=== PATIENT | female | born 1940 | race African-American/Black ===

== ENCOUNTER 2018-01-30 17:33 | Inpatient (IN) | payer MEDICARE, MEDICAID ==
[~2018-01-30] VITALS: Ht 167.6 cm; Wt 53.1 kg
[~2018-01-30 17:33] MED LIST: AMLO10TA4 PO; ATOR20TA PO; CLOP75TA16 PO; LOSA-20 PO
[2018-01-30 18:49] LABS: EOSINOPHILS % 4.7 % (0.0-5.0); HEMATOCRIT. 32.8 % (36.0-48.0); HEMOGLOBIN. 10.7 g/dL (12.0-16.0); MEAN CORPUSCULAR HEMOGLOBIN 26.2 pg (28.0-32.0); MEAN CORPUSCULAR VOLUME 79.9 fL (81.0-99.0); MEAN PLATELET VOLUME 7.8 fl (7.4-10.4); MONOCYTES % 9.8 % (2.0-8.0); NEUTROPHILS % 61.5 % (40.0-76.0); PLATELET 558 x1000/uL (130-400); RED CELL DISTRIBUTION WIDTH 16.1 % (11.6-14.6)
[2018-01-30 18:55] LABS: CHLORIDE 100 mEq/L (98-107)
[2018-01-30 19:04] LABS: INR 1.1
[2018-01-31 00:20] VITALS: BP 124/52
[2018-01-31] MEDS ORDERED: ASPI-986 PO (01:11)
[2018-01-31] MEDS ORDERED: ACETAMINOPHEN 325MG TABLET PO PRN (01:15)
[2018-01-31] MEDS ORDERED: ZOLPIDEM TARTRATE 5MG TABLET PO PRN (01:15)
[2018-01-31 04:00] VITALS: BP 96/54
[2018-01-31 08:07] LABS: BASOPHILS % 1.4 % (0.0-2.0); EOSINOPHILS % 6.4 % (0.0-5.0); HEMATOCRIT. 31.3 % (36.0-48.0); HEMOGLOBIN. 10.5 g/dL (12.0-16.0); LYMPHOCYTES % 25.7 % (20.0-50.0); MEAN CORPUSCULAR HEMOGLOBIN 26.5 pg (28.0-32.0); MEAN PLATELET VOLUME 8.4 fl (7.4-10.4); MONOCYTES % 11.1 % (2.0-8.0); NEUTROPHILS % 55.4 % (40.0-76.0); PLATELET 523 x1000/uL (130-400); RED BLOOD CELL COUNT 3.96 mill/uL (4.2-5.4); RED CELL DISTRIBUTION WIDTH 16.3 % (11.6-14.6)
[2018-01-31] MEDS ORDERED: HYDROCHLOROTHIAZIDE 25MG TABLET PO SCH (09:00)
[2018-01-31] MEDS ORDERED: MEDICATION NOT ON FORMULARY EA (Losartan/Hydrochlorothiazide (Losartan-Hctz 100-25 Mg Ta PO SCH (09:00)
[2018-01-31] MEDS ORDERED: LOSARTAN POTASSIUM 100 MG TABLET PO SCH (09:00)
[2018-01-31 09:38] VITALS: BP 121/53
[2018-01-31] MEDS: CLOPIDOGREL 75MG TABLET PO SCH (09:40)
[2018-01-31] MEDS: ASPIRIN 325MG TABLET PO SCH (09:40)
[2018-01-31] MEDS: AMLODIPINE 10MG TABLET PO SCH (09:40)
[2018-01-31 12:00] VITALS: BP 123/54
[2018-01-31 16:00] VITALS: BP 128/61
[2018-01-31 20:00] VITALS: BP 121/46
[2018-01-31] MEDS ORDERED: ATORVASTATIN CALCIUM 20MG TABLET PO SCH (21:00)
[2018-02-01] VITALS: BP 135/57
[2018-02-01 05:25] VITALS: BP 199/45
[2018-02-01] MEDS ORDERED: CLONIDINE 0.2MG TABLET PO PRN (05:30)
[2018-02-01 05:45] LABS: EOSINOPHILS % 6.7 % (0.0-5.0); HEMATOCRIT. 34.6 % (36.0-48.0); HEMOGLOBIN. 11.3 g/dL (12.0-16.0); LYMPHOCYTES % 31.7 % (20.0-50.0); MEAN CORPUSCULAR HEMOGLOBIN 26.1 pg (28.0-32.0); MONOCYTES % 9.5 % (2.0-8.0); NEUTROPHILS % 50.1 % (40.0-76.0); PLATELET 527 x1000/uL (130-400); RED BLOOD CELL COUNT 4.33 mill/uL (4.2-5.4); RED CELL DISTRIBUTION WIDTH 16.1 % (11.6-14.6)
[2018-02-01 06:29] VITALS: BP 124/50
[2018-02-01 08:00] VITALS: BP 94/51
[2018-02-01] MEDS: CLOPIDOGREL 75MG TABLET PO SCH (08:44)
[2018-02-01] MEDS: ASPIRIN 325MG TABLET PO SCH (08:44)
[2018-02-01] MEDS ORDERED: METOPROLOL TARTRATE 50MG TABLET PO SCH (09:00)
[2018-02-01] MEDS: AMLODIPINE 10MG TABLET PO SCH (09:00)
[2018-02-01] MEDS ORDERED: SODIUM CHLORIDE 0.45% 1,000 ML IV SCH (09:15)
[2018-02-01 11:13] LABS: CREATINE KINASE 64 IU/L (26-192)
[2018-02-01 12:00] VITALS: BP 152/65
[2018-02-01 13:06] VITALS: BP 117/51
[2018-02-03 09:11] LABS: COMPLEMENT C3 133 mg/dL (82-167)
[2018-02-03 19:06] LABS: ANTI-NUCLEAR ANTIBODIES DIRECT Negative (Negative)
== END 2018-02-01 15:00 | disposition home or self-care (01) | DRG 683 ==
LOC: ER 17:57 → 7WST 21:08 → EDBEDREQ 21:11 → EDBEDREQTM 21:11 → ENRESERV 22:48
PROVIDERS: ADMIT Internal Medicine; ATTEND Internal Medicine
DX: N17.9 Acute kidney failure, unspecified (principal); E44.0 Moderate protein-calorie malnutrition; Z86.74 Personal history of sudden cardiac arrest; E87.1 Hypo-osmolality and hyponatremia; Z68.1 Body mass index [BMI] 19.9 or less, adult; D64.9 Anemia, unspecified; E78.5 Hyperlipidemia, unspecified; I25.10 Atherosclerotic heart disease of native coronary artery without angina pectoris; N18.9 Chronic kidney disease, unspecified; I73.9 Peripheral vascular disease, unspecified; K29.70 Gastritis, unspecified, without bleeding; I12.9 Hypertensive chronic kidney disease with stage 1 through stage 4 chronic kidney disease, or unspecified chronic kidney disease; R07.9 Chest pain, unspecified; Z79.899 Other long term (current) drug therapy; Z79.02 Long term (current) use of antithrombotics/antiplatelets; Z82.49 Family history of ischemic heart disease and other diseases of the circulatory system; Z79.82 Long term (current) use of aspirin; Z95.1 Presence of aortocoronary bypass graft; Z95.5 Presence of coronary angioplasty implant and graft
CPT/HCPCS: 36415; 71045; 76770; 80048; 80053; 82550; 83690; 83735; 83880; 84484; 85025; 85610; 86038; 86160; 93005

== ENCOUNTER 2018-10-16 11:00 | Inpatient (IN) | payer MEDICARE, MEDICAID ==
[~2018-10-16] VITALS: Ht 167.6 cm; Wt 44.5 kg
[~2018-10-16 11:00] MED LIST changes: +ASPI-986 PO
[2018-10-16] MEDS ORDERED: INSU100I28 SQ (11:15)
[2018-10-16] MEDS ORDERED: DIGO125T82 PO (11:15)
[2018-10-16] MEDS ORDERED: CARV3.1242 PO (11:15)
[2018-10-16] MEDS ORDERED: SITA1TAB6 PO (11:15)
[2018-10-16] MEDS ORDERED: FENTANYL CITRATE/PF 50MCG/ML 2ML VIAL ONE (12:57)
[2018-10-16] MEDS ORDERED: LIDOCAINE HCL 1% 20ML VIAL (Pyxis) INJ ONE (12:57)
[2018-10-16] MEDS ORDERED: MIDAZOLAM HCL 2 MG/2 ML VIAL ONE (12:57)
[2018-10-16] MEDS ORDERED: IODIXANOL 320MG/ML 200ML BOTTLE ONE (13:15)
[2018-10-16] MEDS ORDERED: IODIXANOL 320MG/ML 100 ML BOTTLE IV ONE (13:18)
[2018-10-16] MEDS ORDERED: HEPARIN SODIUM 1,000 UNIT/1ML VIAL IV ONE ×2 (13:48→15:28)
[2018-10-16] MEDS ORDERED: ONDANSETRON HCL 4MG/2ML INJ IV PRN (14:00)
[2018-10-16] MEDS ORDERED: ACETAMINOPHEN 325MG TABLET PO PRN (14:00)
[2018-10-16] MEDS ORDERED: ATROPINE SULFATE 1MG/10ML SYR IV PRN (14:00)
[2018-10-16] MEDS ORDERED: NITROGLYCERIN 50MCG/ML 10ML VIAL (CATH LAB) IV ONE (14:30)
[2018-10-16] MEDS ORDERED: NICARDIPINE 100MCG/ML 10ML VIAL (CATH LAB) IV ONE (14:30)
[2018-10-16] MEDS ORDERED: LORAZEPAM 0.5MG TABLET PO PRN (15:15)
[2018-10-16] MEDS: MORPHINE SULFATE 10 MG/ML CPJ IV PRN ×2 (15:41→21:37)
[2018-10-16] MEDS ORDERED: SODIUM CHLORIDE 0.45% 600 ML IV ONE (21:23)
[2018-10-16] MEDS: ATORVASTATIN CALCIUM 40MG TABLET PO SCH (21:35)
[2018-10-16 22:00] VITALS: BP 127/64
[2018-10-16 22:28] VITALS: BP 148/78
[2018-10-16] MEDS: NITROGLYCERIN OINT 1GM/INCH UDPKT TD SCH (23:12)
[2018-10-17] VITALS (12 sets, daily range): BP systolic 113–148; BP diastolic 58–82
[2018-10-17] MEDS: MORPHINE SULFATE 10 MG/ML CPJ IV PRN ×2 (03:45→12:11)
[2018-10-17] MEDS: NITROGLYCERIN OINT 1GM/INCH UDPKT TD SCH ×5 (06:12→23:33)
[2018-10-17 07:15] LABS: HEMATOCRIT. 31.2 % (36.0-48.0); HEMOGLOBIN. 10.4 g/dL (12.0-16.0); LYMPHOCYTES % 29.9 % (20.0-50.0); MEAN CORPUSCULAR HEMOGLOBIN 26.3 pg (28.0-32.0); MEAN CORPUSCULAR VOLUME 79.1 fL (81.0-99.0); MEAN PLATELET VOLUME 7.4 fl (7.4-10.4); MONOCYTES % 9.4 % (2.0-8.0); NEUTROPHILS % 58.7 % (40.0-76.0); PLATELET 361 x1000/uL (130-400); RED BLOOD CELL COUNT 3.95 mill/uL (4.2-5.4); RED CELL DISTRIBUTION WIDTH 16.1 % (11.6-14.6)
[2018-10-17] MEDS: AMLODIPINE 5MG TABLET PO SCH (09:15)
[2018-10-17] MEDS: ASPIRIN 81MG TABLET PO SCH (09:15)
[2018-10-17] MEDS ORDERED: LOSA1TAB37 PO (09:25)
[2018-10-17] MEDS ORDERED: ASPI-1158 PO (09:25)
[2018-10-17] MEDS ORDERED: AMLO10TA4 PO (09:25)
[2018-10-17] MEDS ORDERED: CLOP75TA16 PO (09:25)
[2018-10-17] MEDS ORDERED: CILO100T PO (09:25)
[2018-10-17] MEDS ORDERED: ATOR20TA65 PO (09:25)
[2018-10-17] MEDS: ACETYLCYSTEINE 200MG/ML 20% VIAL 4ML PO SCH ×2 (15:34→20:28)
[2018-10-17] MEDS: ATORVASTATIN CALCIUM 40MG TABLET PO SCH (20:28)
[2018-10-18] VITALS (12 sets, daily range): BP systolic 114–151; BP diastolic 58–87
[2018-10-18] MEDS: NITROGLYCERIN OINT 1GM/INCH UDPKT TD SCH ×4 (05:21→22:59)
[2018-10-18 07:17] LABS: BASOPHILS % 1.1 % (0.0-2.0); EOSINOPHILS % 2.3 % (0.0-5.0); HEMATOCRIT. 32.6 % (36.0-48.0); HEMOGLOBIN. 10.8 g/dL (12.0-16.0); LYMPHOCYTES % 30.6 % (20.0-50.0); MEAN CORPUSCULAR HEMOGLOBIN 26.3 pg (28.0-32.0); MEAN CORPUSCULAR VOLUME 79.2 fL (81.0-99.0); MEAN PLATELET VOLUME 7.6 fl (7.4-10.4); MONOCYTES % 10.3 % (2.0-8.0); NEUTROPHILS % 55.7 % (40.0-76.0); PLATELET 365 x1000/uL (130-400); RED BLOOD CELL COUNT 4.11 mill/uL (4.2-5.4)
[2018-10-18] MEDS ORDERED: ACETYLCYSTEINE 200MG/ML 20% VIAL 4ML PO SCH (09:00)
[2018-10-18] MEDS: ASPIRIN 81MG TABLET PO SCH (09:02)
[2018-10-18] MEDS: AMLODIPINE 5MG TABLET PO SCH (09:02)
[2018-10-18] MEDS: ACETYLCYSTEINE 200MG/ML 20% VIAL 4ML PO SCH ×2 (09:28→20:50)
[2018-10-18] MEDS ORDERED: LORAZEPAM 1MG TABLET PO PRN (14:45)
[2018-10-18] MEDS: SODIUM CHLORIDE 0.45% 1,000 ML IV SCH (17:26)
[2018-10-18] MEDS: ATORVASTATIN CALCIUM 40MG TABLET PO SCH (20:50)
[2018-10-19] VITALS (28 sets, daily range): BP systolic 113–190; BP diastolic 54–106
[2018-10-19] MEDS: MORPHINE SULFATE 10 MG/ML CPJ IV PRN ×2 (00:15→18:23)
[2018-10-19] MEDS: NITROGLYCERIN OINT 1GM/INCH UDPKT TD SCH ×4 (05:29→23:48)
[2018-10-19] MEDS: SODIUM CHLORIDE 0.45% 1,000 ML IV SCH ×2 (05:32→21:19)
[2018-10-19 06:20] LABS: EOSINOPHILS % 2.4 % (0.0-5.0); HEMATOCRIT. 32.2 % (36.0-48.0); HEMOGLOBIN. 10.7 g/dL (12.0-16.0); LYMPHOCYTES % 34.4 % (20.0-50.0); MEAN CORPUSCULAR HEMOGLOBIN 26.3 pg (28.0-32.0); MEAN PLATELET VOLUME 7.4 fl (7.4-10.4); MONOCYTES % 11.1 % (2.0-8.0); NEUTROPHILS % 51.1 % (40.0-76.0); PLATELET 348 x1000/uL (130-400); RED BLOOD CELL COUNT 4.07 mill/uL (4.2-5.4); RED CELL DISTRIBUTION WIDTH 15.8 % (11.6-14.6)
[2018-10-19] MEDS: ASPIRIN 81MG TABLET PO SCH (08:05)
[2018-10-19] MEDS: AMLODIPINE 5MG TABLET PO SCH (08:05)
[2018-10-19] MEDS: ACETYLCYSTEINE 200MG/ML 20% VIAL 4ML PO SCH (08:05)
[2018-10-19] MEDS ORDERED: MAGNESIUM 2 G PREMIX 50 ML IV SCH (09:30)
[2018-10-19] MEDS ORDERED: ASPIRIN/SOD BICARB/CITRIC ACID 324MG TAB EFF ONE (12:37)
[2018-10-19] MEDS ORDERED: IODIXANOL 320MG/ML 100 ML BOTTLE IV ONE (12:58)
[2018-10-19] MEDS ORDERED: MIDAZOLAM HCL 2 MG/2 ML VIAL ONE ×2 (12:58→14:12)
[2018-10-19] MEDS ORDERED: LIDOCAINE HCL 1% 20ML VIAL (Pyxis) INJ ONE ×2 (12:58→13:12)
[2018-10-19] MEDS ORDERED: FENTANYL CITRATE/PF 50MCG/ML 2ML VIAL ONE ×2 (12:59→14:54)
[2018-10-19] MEDS ORDERED: NITROGLYCERIN 50MCG/ML 10ML VIAL (CATH LAB) IV ONE (13:47)
[2018-10-19] MEDS ORDERED: NICARDIPINE 100MCG/ML 10ML VIAL (CATH LAB) IV ONE (13:47)
[2018-10-19] MEDS ORDERED: IOHEXOL-300 100 ML BOTTLE ONE (13:57)
[2018-10-19] MEDS ORDERED: HEPARIN SODIUM 1,000 UNIT/1ML VIAL IV ONE (13:58)
[2018-10-19] MEDS ORDERED: CLOPIDOGREL 75MG TABLET ONE (15:10)
[2018-10-19] MEDS ORDERED: ONDANSETRON HCL 4MG/2ML INJ IV PRN (15:15)
[2018-10-19] MEDS ORDERED: CLOPIDOGREL 75MG TABLET PO SCH (15:15)
[2018-10-19] MEDS ORDERED: ATROPINE SULFATE 1MG/10ML SYR IV PRN (15:15)
[2018-10-19] MEDS ORDERED: SODIUM CHLORIDE 0.45% 1,000 ML IV SCH (15:15)
[2018-10-19] MEDS ORDERED: DOPAMINE 400MG/250ML PREMIX 250 ML IV ONE (15:15)
[2018-10-19] MEDS: MORPHINE SULFATE 4 MG/ML CPJ (NOT FOR IM USE) IV PRN ×2 (15:58→23:48)
[2018-10-19 19:14] LABS: HEMOGLOBIN 11.4 g/dL (12.0-16.0)
[2018-10-19] MEDS: ATORVASTATIN CALCIUM 40MG TABLET PO SCH (21:19)
[2018-10-20] VITALS (46 sets, daily range): BP systolic 128–187; BP diastolic 61–115
[2018-10-20] MEDS: NITROGLYCERIN OINT 1GM/INCH UDPKT TD SCH ×4 (05:28→23:29)
[2018-10-20 05:36] LABS: CHLORIDE 102 mEq/L (98-107)
[2018-10-20 05:47] LABS: BASOPHILS % 0.6 % (0.0-2.0); EOSINOPHILS % 0.4 % (0.0-5.0); HEMATOCRIT. 34.4 % (36.0-48.0); LYMPHOCYTES % 9.2 % (20.0-50.0); MEAN CORPUSCULAR HEMOGLOBIN 25.6 pg (28.0-32.0); MEAN CORPUSCULAR VOLUME 80.3 fL (81.0-99.0); MEAN PLATELET VOLUME 7.4 fl (7.4-10.4); MONOCYTES % 7.2 % (2.0-8.0); NEUTROPHILS % 82.6 % (40.0-76.0); PLATELET 348 x1000/uL (130-400); RED BLOOD CELL COUNT 4.28 mill/uL (4.2-5.4); RED CELL DISTRIBUTION WIDTH 15.9 % (11.6-14.6)
[2018-10-20 05:54] LABS: PHOSPHORUS 3.8 mg/dL (2.5-4.9)
[2018-10-20] MEDS: AMLODIPINE 5MG TABLET PO SCH ×2 (08:34→20:44)
[2018-10-20] MEDS: ASPIRIN 81MG TABLET PO SCH (08:34)
[2018-10-20] MEDS: CLOPIDOGREL 75MG TABLET PO SCH (08:35)
[2018-10-20] MEDS: NEBIVOLOL HCL 5 MG TABLET PO SCH (08:35)
[2018-10-20] MEDS ORDERED: CEFAZOLIN SODIUM 1000MG/VIAL IM ONE (10:45)
[2018-10-20 11:36] LABS: *AMPHETAMINES SCREEN URINE NEGATIVE (NEGATIVE); *BENZODIAZEPINES SCREEN URINE PRESUMTIVE POSITIVE (NEGATIVE); *COCAINE SCREEN URINE NEGATIVE (NEGATIVE); METHADONE URINE SCREEN NEGATIVE (NEGATIVE); OPIATES URINE SCREEN PRESUMTIVE POSITIVE (NEGATIVE)
[2018-10-20 11:37] LABS: CANNABINOID URINE SCREEN NEGATIVE (NEGATIVE); PHENCYCLIDINE URINE SCREEN NEGATIVE (NEGATIVE)
[2018-10-20 11:46] LABS: *BARBITURATES SCREEN URINE NEGATIVE (NEGATIVE)
[2018-10-20] MEDS ORDERED: CEFAZOLIN 1000MG PREMIX 50 ML IV SCH (12:00)
[2018-10-20 13:25] LABS: T4 FREE 1.17 ng/dL (0.76-1.46)
[2018-10-20 13:27] LABS: ETHANOL BLOOD < 10 mg/dL
[2018-10-20] MEDS: MORPHINE SULFATE 4 MG/ML CPJ (NOT FOR IM USE) IV PRN (15:47)
[2018-10-20] MEDS: CLONIDINE 0.1MG TABLET PO PRN ×2 (15:49→15:50)
[2018-10-20] MEDS: ATORVASTATIN CALCIUM 40MG TABLET PO SCH (20:44)
[2018-10-21] VITALS (27 sets, daily range): BP systolic 129–163; BP diastolic 61–85
[2018-10-21] MEDS: NITROGLYCERIN OINT 1GM/INCH UDPKT TD SCH ×3 (04:58→17:01)
[2018-10-21] MEDS: MORPHINE SULFATE 4 MG/ML CPJ (NOT FOR IM USE) IV PRN ×3 (04:59→12:57)
[2018-10-21 05:23] LABS: EOSINOPHILS % 1.9 % (0.0-5.0); HEMATOCRIT. 32.5 % (36.0-48.0); HEMOGLOBIN. 10.5 g/dL (12.0-16.0); LYMPHOCYTES % 14.8 % (20.0-50.0); MEAN CORPUSCULAR HEMOGLOBIN 25.8 pg (28.0-32.0); MEAN CORPUSCULAR VOLUME 79.9 fL (81.0-99.0); MEAN PLATELET VOLUME 7.7 fl (7.4-10.4); MONOCYTES % 13.2 % (2.0-8.0); NEUTROPHILS % 69.1 % (40.0-76.0); PLATELET 307 x1000/uL (130-400); RED BLOOD CELL COUNT 4.06 mill/uL (4.2-5.4); RED CELL DISTRIBUTION WIDTH 15.9 % (11.6-14.6)
[2018-10-21] MEDS: NEBIVOLOL HCL 5 MG TABLET PO SCH (08:22)
[2018-10-21] MEDS: ASPIRIN 81MG TABLET PO SCH (08:22)
[2018-10-21] MEDS: CLOPIDOGREL 75MG TABLET PO SCH (08:23)
[2018-10-21] MEDS: AMLODIPINE 5MG TABLET PO SCH ×2 (08:23→21:05)
[2018-10-21] MEDS: ATORVASTATIN CALCIUM 40MG TABLET PO SCH (21:33)
[2018-10-22] VITALS (14 sets, daily range): BP systolic 108–152; BP diastolic 56–98
[2018-10-22] MEDS: NITROGLYCERIN OINT 1GM/INCH UDPKT TD SCH ×4 (01:10→17:22)
[2018-10-22] MEDS: MORPHINE SULFATE 4 MG/ML CPJ (NOT FOR IM USE) IV PRN (03:51)
[2018-10-22 06:22] LABS: BASOPHILS % 0.7 % (0.0-2.0); EOSINOPHILS % 1.7 % (0.0-5.0); HEMATOCRIT. 30.6 % (36.0-48.0); MEAN CORPUSCULAR HEMOGLOBIN 25.9 pg (28.0-32.0); MEAN CORPUSCULAR VOLUME 79.5 fL (81.0-99.0); MEAN PLATELET VOLUME 7.8 fl (7.4-10.4); MONOCYTES % 12.3 % (2.0-8.0); NEUTROPHILS % 68.3 % (40.0-76.0); PLATELET 308 x1000/uL (130-400); RED BLOOD CELL COUNT 3.85 mill/uL (4.2-5.4); RED CELL DISTRIBUTION WIDTH 15.8 % (11.6-14.6)
[2018-10-22] MEDS ORDERED: SODIUM CHLORIDE 0.9% 1,000 ML IV SCH (08:00)
[2018-10-22] MEDS: ASPIRIN 81MG TABLET PO SCH (08:04)
[2018-10-22] MEDS: CLOPIDOGREL 75MG TABLET PO SCH (08:05)
[2018-10-22] MEDS: AMLODIPINE 5MG TABLET PO SCH ×2 (08:06→21:03)
[2018-10-22] MEDS: NEBIVOLOL HCL 5 MG TABLET PO SCH (08:06)
[2018-10-22] MEDS: ACETAMINOPHEN 325MG TABLET PO PRN ×2 (12:58→21:58)
[2018-10-22] MEDS: ATORVASTATIN CALCIUM 40MG TABLET PO SCH (21:00)
== END 2018-10-22 22:59 | DRG 215 ==
LOC: CCL 11:00 → 3WST 21:20 → CVICU 10-19 14:01 → 3WST 10-21 17:16
PROVIDERS: ADMIT Specialist; ATTEND Specialist
PROC: B2121ZZ Fluoroscopy of Single Coronary Artery Bypass Graft using Low Osmolar Contrast (ICD-10-PCS; 2018-10-16)
PROC: B2111ZZ Fluoroscopy of Multiple Coronary Arteries using Low Osmolar Contrast (ICD-10-PCS; 2018-10-16)
PROC: 027135Z Dilation of Coronary Artery, Two Arteries with Two Drug-eluting Intraluminal Devices, Percutaneous Approach (ICD-10-PCS; principal; 2018-10-19)
PROC: 4A023N7 Measurement of Cardiac Sampling and Pressure, Left Heart, Percutaneous Approach (ICD-10-PCS; 2018-10-19)
PROC: 02HA3RJ Insertion of Short-term External Heart Assist System into Heart, Intraoperative, Percutaneous Approach (ICD-10-PCS; 2018-10-19)
PROC: 5A0221D Assistance with Cardiac Output using Impeller Pump, Continuous (ICD-10-PCS; 2018-10-19)
DX: T82.855A Stenosis of coronary artery stent, initial encounter (principal); G92 Toxic encephalopathy; I25.110 Atherosclerotic heart disease of native coronary artery with unstable angina pectoris; E46 Unspecified protein-calorie malnutrition; N17.9 Acute kidney failure, unspecified; Z68.1 Body mass index [BMI] 19.9 or less, adult; I12.9 Hypertensive chronic kidney disease with stage 1 through stage 4 chronic kidney disease, or unspecified chronic kidney disease; E78.5 Hyperlipidemia, unspecified; F03.90 Unspecified dementia, unspecified severity, without behavioral disturbance, psychotic disturbance, mood disturbance, and anxiety; E04.1 Nontoxic single thyroid nodule; I25.82 Chronic total occlusion of coronary artery; N18.3 Chronic kidney disease, stage 3 (moderate); E83.42 Hypomagnesemia; R26.9 Unspecified abnormalities of gait and mobility; D64.9 Anemia, unspecified; Y83.1 Surgical operation with implant of artificial internal device as the cause of abnormal reaction of the patient, or of later complication, without mention of misadventure at the time of the procedure; Z82.49 Family history of ischemic heart disease and other diseases of the circulatory system; Z86.74 Personal history of sudden cardiac arrest; Z86.79 Personal history of other diseases of the circulatory system; Z95.1 Presence of aortocoronary bypass graft; Y92.89 Other specified places as the place of occurrence of the external cause
CPT/HCPCS: 33990; 36415; 70551; 71250; 74176; 76857; 80048; 80305; 82140; 82607; 82746; 83036; 83735; 84100; 84439; 84443; 84481; 84484; 85014; 85018; 85347; 92920; 92924; 92925; 93005; 93306; 93454; 93458; 93923; 97116; 97162; 97530; C1725; C1760; C1769; C1874; C1887; C1893; G0482; J0690; J1265; J1644; J2250; J2270; J2405; J3010; J3475; J3490; J7030; J7608; L1830; Q9967; A4315

== ENCOUNTER 2018-10-22 23:00 | Inpatient (IN) | payer MEDICARE, MEDICAID ==
[~2018-10-22] VITALS: Ht 167.6 cm; Wt 83.9 kg
[~2018-10-22 23:00] MED LIST changes: +ASPI-1158 PO; -ASPI-986 PO; -ATOR20TA PO; +ATOR20TA65 PO; +CILO100T PO; -LOSA-20 PO; +LOSA1TAB37 PO
[2018-10-22 23:30] VITALS: BP 126/69
[2018-10-23] VITALS: BP 126/69
[2018-10-23] MEDS ORDERED: ONDANSETRON HCL 4MG/2ML INJ IV PRN (00:15)
[2018-10-23] MEDS ORDERED: CLONIDINE 0.1MG TABLET PO PRN (00:15)
[2018-10-23] MEDS ORDERED: MORPHINE SULFATE 4 MG/ML CPJ (NOT FOR IM USE) IV PRN (00:15)
[2018-10-23] MEDS ORDERED: ATROPINE SULFATE 1MG/10ML SYR IV PRN (00:15)
[2018-10-23] MEDS: NITROGLYCERIN OINT 1GM/INCH UDPKT TD SCH ×5 (01:14→22:25)
[2018-10-23] MEDS: SODIUM CHLORIDE 0.9% 1,000 ML IV SCH ×2 (01:14→22:25)
[2018-10-23] MEDS: MORPHINE SULFATE 4 MG/ML CPJ (NOT FOR IM USE) IV PRN ×2 (01:15→06:36)
[2018-10-23 08:00] VITALS: BP 148/64
[2018-10-23] MEDS: ASPIRIN 81MG TABLET PO SCH (08:54)
[2018-10-23] MEDS: CLOPIDOGREL 75MG TABLET PO SCH (08:54)
[2018-10-23] MEDS: AMLODIPINE 5MG TABLET PO SCH ×2 (08:55→22:24)
[2018-10-23] MEDS: NEBIVOLOL HCL 5 MG TABLET PO SCH (08:55)
[2018-10-23 09:02] LABS: CHLORIDE 107 mEq/L (98-107)
[2018-10-23] MEDS: LACTULOSE 20G/30ML UDC PO SCH ×3 (14:00→21:00)
[2018-10-23] MEDS: DOCUSATE SODIUM 100MG CAPSULE PO SCH (18:19)
[2018-10-23 20:00] VITALS: BP 156/58
[2018-10-23] MEDS: POLYETHYLENE GLYCOL 3350 (17GM) 1 DOSE PACK PO SCH (21:00)
[2018-10-23] MEDS: ATORVASTATIN CALCIUM 40MG TABLET PO SCH (22:23)
[2018-10-24] MEDS: NITROGLYCERIN OINT 1GM/INCH UDPKT TD SCH ×3 (07:00→18:08)
[2018-10-24 08:00] VITALS: BP 120/63
[2018-10-24] MEDS: DOCUSATE SODIUM 100MG CAPSULE PO SCH ×2 (09:00→17:00)
[2018-10-24] MEDS: CLOPIDOGREL 75MG TABLET PO SCH (10:46)
[2018-10-24] MEDS: ASPIRIN 81MG TABLET PO SCH (10:46)
[2018-10-24] MEDS: AMLODIPINE 5MG TABLET PO SCH ×2 (10:46→20:57)
[2018-10-24] MEDS: NEBIVOLOL HCL 5 MG TABLET PO SCH (10:46)
[2018-10-24] MEDS: ACETAMINOPHEN 325MG TABLET PO PRN (12:25)
[2018-10-24] MEDS: SODIUM CHLORIDE 0.9% 1,000 ML IV SCH (16:32)
[2018-10-24 18:33] LABS: CLARITY URINE CLEAR (CLEAR); COLOR URINE YELLOW (YELLOW); KETONES URINE NEGATIVE (NEGATIVE); LEUKOCYTE ESTERASE URINE NEGATIVE (NEGATIVE); NITRITE URINE NEGATIVE (NEGATIVE); OCCULT BLOOD URINE NEGATIVE (NEGATIVE); PROTEIN URINE NEGATIVE (NEGATIVE); SPECIFIC GRAVITY URINE 1.016 (1.005-1.030); UROBILINOGEN URINE 0.2 E.U./dL (0.2-1.0)
[2018-10-24 20:00] VITALS: BP 121/71
[2018-10-24] MEDS: ATORVASTATIN CALCIUM 40MG TABLET PO SCH (20:56)
[2018-10-24] MEDS: POLYETHYLENE GLYCOL 3350 (17GM) 1 DOSE PACK PO SCH (20:56)
[2018-10-25] MEDS: NITROGLYCERIN OINT 1GM/INCH UDPKT TD SCH ×5 (00:11→23:36)
[2018-10-25] MEDS: ACETAMINOPHEN 325MG TABLET PO PRN ×2 (00:15→16:13)
[2018-10-25 07:18] LABS: EOSINOPHILS % 2.7 % (0.0-5.0); HEMATOCRIT. 29.4 % (36.0-48.0); HEMOGLOBIN. 9.7 g/dL (12.0-16.0); LYMPHOCYTES % 32.2 % (20.0-50.0); MEAN CORPUSCULAR HEMOGLOBIN 26.1 pg (28.0-32.0); MEAN PLATELET VOLUME 7.9 fl (7.4-10.4); MONOCYTES % 11.6 % (2.0-8.0); NEUTROPHILS % 52.5 % (40.0-76.0); PLATELET 366 x1000/uL (130-400); RED BLOOD CELL COUNT 3.71 mill/uL (4.2-5.4); RED CELL DISTRIBUTION WIDTH 15.7 % (11.6-14.6)
[2018-10-25 07:37] LABS: CHLORIDE 108 mEq/L (98-107)
[2018-10-25 07:51] LABS: FOLIC ACID (FOLATE) SERUM 15.4 ng/mL (>5.38)
[2018-10-25 07:54] LABS: TOTAL IRON BINDING CAPACITY 247 ug/dL (250-450)
[2018-10-25 07:55] LABS: PHOSPHORUS 3.4 mg/dL (2.5-4.9)
[2018-10-25 08:03] VITALS: BP 141/57
[2018-10-25] MEDS: ASPIRIN 81MG TABLET PO SCH (08:42)
[2018-10-25] MEDS: NEBIVOLOL HCL 5 MG TABLET PO SCH (08:42)
[2018-10-25] MEDS: AMLODIPINE 5MG TABLET PO SCH ×2 (08:43→21:48)
[2018-10-25] MEDS: CLOPIDOGREL 75MG TABLET PO SCH (08:43)
[2018-10-25] MEDS: DOCUSATE SODIUM 100MG CAPSULE PO SCH ×2 (08:43→16:13)
[2018-10-25] MEDS: ENOXAPARIN 30MG/0.3ML SYR SUBCUT SCH (08:45)
[2018-10-25] MEDS: SODIUM CHLORIDE 0.9% 1,000 ML IV SCH (12:27)
[2018-10-25] MEDS: CYANOCOBALAMIN 1000MCG/ML VIAL IM SCH (16:13)
[2018-10-25] MEDS: LEVOFLOXACIN 250MG TABLET PO SCH (16:13)
[2018-10-25 20:00] VITALS: BP 135/51
[2018-10-25] MEDS: IRON SUCROSE COMPLEX 100 MG in SODIUM CHLORIDE 0.9% 100 ML IV SCH (21:47)
[2018-10-25] MEDS: ATORVASTATIN CALCIUM 40MG TABLET PO SCH (21:47)
[2018-10-25] MEDS: POLYETHYLENE GLYCOL 3350 (17GM) 1 DOSE PACK PO SCH (21:49)
[2018-10-26] MEDS: ACETAMINOPHEN 325MG TABLET PO PRN (02:00)
[2018-10-26] MEDS: NITROGLYCERIN OINT 1GM/INCH UDPKT TD SCH ×3 (06:13→17:55)
[2018-10-26 08:00] VITALS: BP 161/62
[2018-10-26] MEDS: CLOPIDOGREL 75MG TABLET PO SCH (09:42)
[2018-10-26] MEDS: AMLODIPINE 5MG TABLET PO SCH ×2 (09:43→21:09)
[2018-10-26] MEDS: DOCUSATE SODIUM 100MG CAPSULE PO SCH ×2 (09:43→17:54)
[2018-10-26] MEDS: NEBIVOLOL HCL 5 MG TABLET PO SCH (09:43)
[2018-10-26] MEDS: ASPIRIN 81MG TABLET PO SCH (09:43)
[2018-10-26] MEDS: ENOXAPARIN 30MG/0.3ML SYR SUBCUT SCH (09:44)
[2018-10-26] MEDS: CYANOCOBALAMIN 1000MCG/ML VIAL IM SCH (09:44)
[2018-10-26] MEDS: SODIUM CHLORIDE 0.9% 1,000 ML IV SCH (09:45)
[2018-10-26] MEDS: LEVOFLOXACIN 250MG TABLET PO SCH (17:54)
[2018-10-26 20:00] VITALS: BP 145/75
[2018-10-26] MEDS: IRON SUCROSE COMPLEX 100 MG in SODIUM CHLORIDE 0.9% 100 ML IV SCH (21:08)
[2018-10-26] MEDS: POLYETHYLENE GLYCOL 3350 (17GM) 1 DOSE PACK PO SCH (21:08)
[2018-10-26] MEDS: ATORVASTATIN CALCIUM 40MG TABLET PO SCH (21:09)
[2018-10-27] MEDS: NITROGLYCERIN OINT 1GM/INCH UDPKT TD SCH ×4 (00:39→17:19)
[2018-10-27] MEDS: SODIUM CHLORIDE 0.9% 1,000 ML IV SCH (01:49)
[2018-10-27 07:53] LABS: BASOPHILS % 1.3 % (0.0-2.0); EOSINOPHILS % 1.6 % (0.0-5.0); HEMATOCRIT. 29.8 % (36.0-48.0); LYMPHOCYTES % 24.2 % (20.0-50.0); MEAN CORPUSCULAR HEMOGLOBIN 26.1 pg (28.0-32.0); MEAN CORPUSCULAR VOLUME 78.3 fL (81.0-99.0); MEAN PLATELET VOLUME 7.7 fl (7.4-10.4); MONOCYTES % 12.1 % (2.0-8.0); NEUTROPHILS % 60.8 % (40.0-76.0); PLATELET 426 x1000/uL (130-400); RED BLOOD CELL COUNT 3.81 mill/uL (4.2-5.4); RED CELL DISTRIBUTION WIDTH 15.6 % (11.6-14.6)
[2018-10-27 08:00] VITALS: BP 131/62
[2018-10-27] MEDS: ASPIRIN 81MG TABLET PO SCH (08:33)
[2018-10-27] MEDS: CLOPIDOGREL 75MG TABLET PO SCH (08:33)
[2018-10-27] MEDS: ENOXAPARIN 30MG/0.3ML SYR SUBCUT SCH (08:33)
[2018-10-27] MEDS: NEBIVOLOL HCL 5 MG TABLET PO SCH (08:34)
[2018-10-27] MEDS: CYANOCOBALAMIN 1000MCG/ML VIAL IM SCH (08:34)
[2018-10-27] MEDS: AMLODIPINE 5MG TABLET PO SCH ×2 (08:43→20:56)
[2018-10-27] MEDS: DOCUSATE SODIUM 100MG CAPSULE PO SCH ×2 (09:00→17:11)
[2018-10-27 20:00] VITALS: BP 154/69
[2018-10-27] MEDS: POLYETHYLENE GLYCOL 3350 (17GM) 1 DOSE PACK PO SCH (20:17)
[2018-10-27] MEDS: IRON SUCROSE COMPLEX 100 MG in SODIUM CHLORIDE 0.9% 100 ML IV SCH (20:17)
[2018-10-27] MEDS: ATORVASTATIN CALCIUM 40MG TABLET PO SCH (20:17)
[2018-10-28] MEDS: NITROGLYCERIN OINT 1GM/INCH UDPKT TD SCH ×4 (00:22→17:28)
[2018-10-28] MEDS: SODIUM CHLORIDE 0.9% 1,000 ML IV SCH (00:33)
[2018-10-28] MEDS: CYANOCOBALAMIN 1000MCG/ML VIAL IM SCH (08:23)
[2018-10-28] MEDS: CLOPIDOGREL 75MG TABLET PO SCH (08:24)
[2018-10-28] MEDS: DOCUSATE SODIUM 100MG CAPSULE PO SCH ×2 (08:24→16:39)
[2018-10-28] MEDS: ASPIRIN 81MG TABLET PO SCH (08:24)
[2018-10-28] MEDS: NEBIVOLOL HCL 5 MG TABLET PO SCH (08:24)
[2018-10-28 08:25] VITALS: BP 147/57
[2018-10-28] MEDS: ENOXAPARIN 30MG/0.3ML SYR SUBCUT SCH (08:25)
[2018-10-28] MEDS: AMLODIPINE 5MG TABLET PO SCH ×2 (08:58→21:21)
[2018-10-28] MEDS: POLYVINYL ALCOHOL OPHTH DROPS 15ML LEFTEYE SCH ×5 (13:35→21:31)
[2018-10-28] MEDS: POLYETHYLENE GLYCOL 3350 (17GM) 1 DOSE PACK PO SCH (21:00)
[2018-10-28] MEDS: ATORVASTATIN CALCIUM 40MG TABLET PO SCH (21:23)
[2018-10-28] MEDS: IRON SUCROSE COMPLEX 100 MG in SODIUM CHLORIDE 0.9% 100 ML IV SCH (21:30)
[2018-10-29] MEDS: SODIUM CHLORIDE 0.9% 1,000 ML IV SCH ×2 (02:01→16:54)
[2018-10-29] MEDS: NITROGLYCERIN OINT 1GM/INCH UDPKT TD SCH ×5 (02:03→23:31)
[2018-10-29] MEDS: ACETAMINOPHEN 325MG TABLET PO PRN ×2 (02:04→15:46)
[2018-10-29 07:20] LABS: BASOPHILS % 1.3 % (0.0-2.0); EOSINOPHILS % 2.1 % (0.0-5.0); HEMATOCRIT. 32.1 % (36.0-48.0); HEMOGLOBIN. 10.3 g/dL (12.0-16.0); LYMPHOCYTES % 27.1 % (20.0-50.0); MEAN CORPUSCULAR HEMOGLOBIN 25.6 pg (28.0-32.0); MEAN CORPUSCULAR VOLUME 79.5 fL (81.0-99.0); MEAN PLATELET VOLUME 7.6 fl (7.4-10.4); NEUTROPHILS % 59.5 % (40.0-76.0); PLATELET 437 x1000/uL (130-400); RED BLOOD CELL COUNT 4.04 mill/uL (4.2-5.4); RED CELL DISTRIBUTION WIDTH 15.9 % (11.6-14.6)
[2018-10-29 08:35] VITALS: BP 152/67
[2018-10-29] MEDS: CYANOCOBALAMIN 1000MCG/ML VIAL IM SCH (08:48)
[2018-10-29] MEDS: DOCUSATE SODIUM 100MG CAPSULE PO SCH ×2 (08:48→16:53)
[2018-10-29] MEDS: AMLODIPINE 5MG TABLET PO SCH ×2 (08:50→20:45)
[2018-10-29] MEDS: NEBIVOLOL HCL 5 MG TABLET PO SCH (08:51)
[2018-10-29] MEDS: CLOPIDOGREL 75MG TABLET PO SCH (08:51)
[2018-10-29] MEDS: ASPIRIN 81MG TABLET PO SCH (08:51)
[2018-10-29] MEDS: ENOXAPARIN 30MG/0.3ML SYR SUBCUT SCH (08:53)
[2018-10-29] MEDS: POLYVINYL ALCOHOL OPHTH DROPS 15ML LEFTEYE SCH ×7 (09:32→20:00)
[2018-10-29 14:22] LABS: 25-HYDROXY VITAMIN D3 5.9 ng/mL (.)
[2018-10-29] MEDS ORDERED: HYDROCODONE/ACETAMINOPHEN 5/325MG TABLET PO PRN (19:45)
[2018-10-29 20:00] VITALS: BP 142/63
[2018-10-29] MEDS: ATORVASTATIN CALCIUM 40MG TABLET PO SCH (20:44)
[2018-10-29] MEDS: POLYETHYLENE GLYCOL 3350 (17GM) 1 DOSE PACK PO SCH (20:45)
[2018-10-29] MEDS: HYDROCODONE/ACETAMINOPHEN 5/325MG TABLET PO PRN (20:46)
[2018-10-29] MEDS ORDERED: ERGOCALCIFEROL 50000UNITS CAPSULE PO SCH (21:00)
[2018-10-29] MEDS: IRON SUCROSE COMPLEX 100 MG in SODIUM CHLORIDE 0.9% 100 ML IV SCH (23:20)
[2018-10-30] MEDS: NITROGLYCERIN OINT 1GM/INCH UDPKT TD SCH ×2 (06:27→11:28)
[2018-10-30 08:00] VITALS: BP 144/69
[2018-10-30] MEDS: DOCUSATE SODIUM 100MG CAPSULE PO SCH (09:27)
[2018-10-30] MEDS: AMLODIPINE 5MG TABLET PO SCH (09:28)
[2018-10-30] MEDS: CLOPIDOGREL 75MG TABLET PO SCH (09:28)
[2018-10-30] MEDS: ENOXAPARIN 30MG/0.3ML SYR SUBCUT SCH (09:29)
[2018-10-30] MEDS: NEBIVOLOL HCL 5 MG TABLET PO SCH (09:29)
[2018-10-30] MEDS: ASPIRIN 81MG TABLET PO SCH (09:29)
[2018-10-30 10:07] VITALS: BP 134/52
[2018-10-30 10:59] VITALS: BP 138/62
[2018-10-30] MEDS: HYDROCODONE/ACETAMINOPHEN 5/325MG TABLET PO PRN (10:59)
[2018-10-30] MEDS: POLYVINYL ALCOHOL OPHTH DROPS 15ML LEFTEYE SCH ×3 (11:09→15:13)
[2018-10-30] MEDS: SODIUM CHLORIDE 0.9% 1,000 ML IV SCH (12:51)
== END 2018-10-30 16:04 | disposition home health service (06) | DRG 92 ==
PROVIDERS: ADMIT Physical Medicine & Rehabilitation Spinal Cord Injury Medicine; ATTEND Specialist
DX: G92 Toxic encephalopathy (principal); E46 Unspecified protein-calorie malnutrition; N17.9 Acute kidney failure, unspecified; N39.0 Urinary tract infection, site not specified; E04.1 Nontoxic single thyroid nodule; D50.9 Iron deficiency anemia, unspecified; I12.9 Hypertensive chronic kidney disease with stage 1 through stage 4 chronic kidney disease, or unspecified chronic kidney disease; I25.10 Atherosclerotic heart disease of native coronary artery without angina pectoris; G31.9 Degenerative disease of nervous system, unspecified; R53.81 Other malaise; R26.9 Unspecified abnormalities of gait and mobility; F03.90 Unspecified dementia, unspecified severity, without behavioral disturbance, psychotic disturbance, mood disturbance, and anxiety; B96.5 Pseudomonas (aeruginosa) (mallei) (pseudomallei) as the cause of diseases classified elsewhere; N18.3 Chronic kidney disease, stage 3 (moderate); I73.9 Peripheral vascular disease, unspecified; Z86.73 Personal history of transient ischemic attack (TIA), and cerebral infarction without residual deficits; Z95.1 Presence of aortocoronary bypass graft; Z95.5 Presence of coronary angioplasty implant and graft; Z68.29 Body mass index [BMI] 29.0-29.9, adult
CPT/HCPCS: 36415; 80048; 82140; 82306; 82607; 82728; 82746; 83036; 83540; 83550; 83735; 84100; 84134; 84443; 87077; 87186; 92523; 92610; 93005; 93970; 97110; 97116; 97150; 97162; 97166; 97530; 97535; C1893; G0515; J1650; J2270; J3420; J7030; J7050

== ENCOUNTER 2019-07-27 07:03 | Day surgery (SDC) | payer MEDICARE, MEDICAID ==
[~2019-07-27 07:03] MED LIST changes: -CILO100T PO; -CLOP75TA16 PO; +CLOP75TA4 PO; -LOSA1TAB37 PO
[2019-07-27] MEDS ORDERED: IODIXANOL 320MG/ML 100 ML BOTTLE IV ONE (07:32)
[2019-07-27] MEDS ORDERED: LIDOCAINE HCL 1% 20ML VIAL (Pyxis) INJ ONE (07:47)
[2019-07-27] MEDS ORDERED: MIDAZOLAM HCL 2 MG/2 ML VIAL ONE (07:47)
[2019-07-27] MEDS ORDERED: FENTANYL CITRATE/PF 50MCG/ML 2ML VIAL ONE (07:47)
[2019-07-27] MEDS ORDERED: ASPIRIN/SOD BICARB/CITRIC ACID 324MG TAB EFF ONE (07:48)
[2019-07-27] MEDS ORDERED: NEBI5TAB3 PO (07:56)
[2019-07-27] MEDS ORDERED: CILO100T PO (07:59)
[2019-07-27] MEDS ORDERED: PROTAMINE SULFATE 10MG/ML VIAL 5ML IV ONE (08:47)
[2019-07-27] MEDS ORDERED: ONDANSETRON HCL 4MG/2ML INJ IV PRN (09:00)
[2019-07-27] MEDS ORDERED: MORPHINE SULFATE 2 MG/ML CPJ (NOT FOR IM USE) IV PRN (09:00)
[2019-07-27] MEDS ORDERED: ACETAMINOPHEN 325MG TABLET PO PRN (09:00)
[2019-07-27] MEDS ORDERED: ATROPINE SULFATE 1MG/10ML SYR IV PRN (09:00)
[2019-07-27] MEDS ORDERED: HYDRALAZINE 20MG/ML VIAL ONE (09:04)
[2019-07-27] MEDS ORDERED: ACETAMINOPHEN 325MG TABLET ONE (14:44)
[2019-07-27] MEDS ORDERED: HEPARIN SODIUM 1,000 UNIT/1ML VIAL IV ONE (15:16)
[2019-07-27] MEDS ORDERED: NITROGLYCERIN 50MCG/ML 10ML VIAL (CATH LAB) IV ONE (15:16)
[2019-07-27] MEDS ORDERED: NICARDIPINE 100MCG/ML 10ML VIAL (CATH LAB) IV ONE (15:16)
== END 2019-07-27 15:20 | disposition home or self-care (01) ==
LOC: CCL 07:03
PROVIDERS: ATTEND Specialist
DX: I73.9 Peripheral vascular disease, unspecified (principal); I25.10 Atherosclerotic heart disease of native coronary artery without angina pectoris; Z95.1 Presence of aortocoronary bypass graft; Z79.82 Long term (current) use of aspirin; Z79.899 Other long term (current) drug therapy
CPT/HCPCS: 36245; 75710; 85347; 99152; 99153; C1760; C1769; C1893; J0360; J1644; J2250; J2720; J3010; J3490; Q9967; 36246; G0500

== ENCOUNTER 2019-11-11 08:17 | Day surgery (SDC) | payer MEDICARE, MEDICAID ==
[~2019-11-11] VITALS: Ht 167.6 cm; Wt 72.6 kg
[~2019-11-11 08:17] MED LIST changes: +CILO100T PO; +NEBI5TAB3 PO
[2019-11-11] MEDS ORDERED: PHENYLEPHRINE 100MCG/ML 10ML VIAL (CATH LAB) IV ONE (09:39)
[2019-11-11] MEDS ORDERED: NICARDIPINE 100MCG/ML 10ML VIAL (CATH LAB) IV ONE (09:39)
[2019-11-11] MEDS ORDERED: HEPARIN SODIUM 1,000 UNIT/1ML VIAL IV ONE (09:39)
[2019-11-11] MEDS ORDERED: NITROGLYCERIN 50MCG/ML 10ML VIAL (CATH LAB) IV ONE (09:39)
[2019-11-11] MEDS ORDERED: ACETAMINOPHEN COD PO (10:26)
[2019-11-11] MEDS ORDERED: AMLO10TA80 PO (10:26)
[2019-11-11] MEDS ORDERED: METO25TA6 PO (10:26)
[2019-11-11] MEDS ORDERED: LIP40 PO (10:27)
[2019-11-11] MEDS ORDERED: LOSA25TA26 PO (10:27)
[2019-11-11] MEDS ORDERED: IODIXANOL 320MG/ML 100 ML BOTTLE IV ONE (10:47)
[2019-11-11] MEDS ORDERED: LIDOCAINE HCL 1% 20ML VIAL (Pyxis) INJ ONE (10:48)
[2019-11-11] MEDS ORDERED: ASPIRIN/SOD BICARB/CITRIC ACID 324MG TAB EFF ONE (10:57)
[2019-11-11] MEDS ORDERED: FENTANYL CITRATE/PF 50MCG/ML 2ML VIAL ONE (10:58)
[2019-11-11] MEDS ORDERED: MIDAZOLAM HCL 2 MG/2 ML VIAL ONE (10:59)
[2019-11-11] MEDS ORDERED: DOPAMINE 400MG/250ML PREMIX 250 ML IV ONE (12:15)
[2019-11-11] MEDS ORDERED: ATROPINE SULFATE 1MG/10ML SYR IV PRN (12:30)
[2019-11-11] MEDS ORDERED: ACETAMINOPHEN 325MG TABLET PO PRN (12:30)
[2019-11-11] MEDS ORDERED: ONDANSETRON HCL 4MG/2ML INJ IV PRN (12:30)
[2019-11-11] MEDS ORDERED: MORPHINE SULFATE 2 MG/ML CPJ (NOT FOR IM USE) IV PRN (12:30)
== END 2019-11-11 18:25 | disposition home or self-care (01) ==
LOC: CCL 08:17
PROVIDERS: ATTEND Specialist
DX: R07.89 Other chest pain (principal); R94.39 Abnormal result of other cardiovascular function study; I12.9 Hypertensive chronic kidney disease with stage 1 through stage 4 chronic kidney disease, or unspecified chronic kidney disease; N18.9 Chronic kidney disease, unspecified; E78.5 Hyperlipidemia, unspecified; I25.10 Atherosclerotic heart disease of native coronary artery without angina pectoris; T82.855A Stenosis of coronary artery stent, initial encounter; Z95.1 Presence of aortocoronary bypass graft; Z79.899 Other long term (current) drug therapy; Z79.82 Long term (current) use of aspirin; Y83.9 Surgical procedure, unspecified as the cause of abnormal reaction of the patient, or of later complication, without mention of misadventure at the time of the procedure; Y92.89 Other specified places as the place of occurrence of the external cause
CPT/HCPCS: 36415; 80048; 93459; 99152; 99153; C1769; C1887; C1893; J1265; J1644; J2250; J2370; J3010; J3490; Q9967; G0500

== ENCOUNTER 2020-05-29 12:26 | Inpatient (IN) | payer MEDICARE, MEDICAID ==
[~2020-05-29] VITALS: Ht 167.6 cm; Wt 641.8 kg
[~2020-05-29 12:26] MED LIST changes: +ACETAMINOPHEN COD PO; -AMLO10TA4 PO; +AMLO10TA80 PO; -ATOR20TA65 PO; +LIP40 PO; +LOSA25TA26 PO; +METO25TA6 PO
[2020-05-29] MEDS ORDERED: PIPERACILLIN/TAZ 3.375G PREMIX 50 ML IV ONE (14:00)
[2020-05-29] MEDS ORDERED: VANCOMYCIN 1 G PREMIX 200 ML IV ONE (14:00)
[2020-05-29 14:08] LABS: BASOPHILS % 0.3 % (0.0-2.0); EOSINOPHILS % 1.2 % (0.0-5.0); HEMATOCRIT. 34.5 % (36.0-48.0); HEMOGLOBIN. 11.6 g/dL (12.0-16.0); LYMPHOCYTES % 17.9 % (20.0-50.0); MEAN CORPUSCULAR HEMOGLOBIN 27.6 pg (28.0-32.0); MEAN CORPUSCULAR VOLUME 82.3 fL (81.0-99.0); MEAN PLATELET VOLUME 7.6 fl (7.4-10.4); NEUTROPHILS % 70.6 % (40.0-76.0); PLATELET 351 x1000/uL (130-400); RED BLOOD CELL COUNT 4.19 mill/uL (4.2-5.4); RED CELL DISTRIBUTION WIDTH 16.9 % (11.6-14.6)
[2020-05-29 14:14] LABS: CHLORIDE 98 mEq/L (98-107)
[2020-05-29 14:18] LABS: PARTIAL THROMBOPLASTIN TIME 29.4 sec (23.4-31.0); PROTHROMBIN TIME 10.6 sec (9.6-11.0)
[2020-05-29] MEDS ORDERED: ASPIRIN 81MG TABLET PO ONE (15:15)
[2020-05-29 16:35] LABS: CLARITY URINE CLEAR (CLEAR); COLOR URINE YELLOW (YELLOW); KETONES URINE NEGATIVE (NEGATIVE); LEUKOCYTE ESTERASE URINE NEGATIVE (NEGATIVE); NITRITE URINE NEGATIVE (NEGATIVE); OCCULT BLOOD URINE NEGATIVE (NEGATIVE); PROTEIN URINE NEGATIVE (NEGATIVE); SPECIFIC GRAVITY URINE 1.009 (1.005-1.030)
[2020-05-29] MEDS ORDERED: ENOXAPARIN 40MG/0.4ML SYR SUBCUT SCH (16:45)
[2020-05-29] MEDS ORDERED: CLONIDINE 0.1MG TABLET PO PRN ×2 (16:45→17:30)
[2020-05-29] MEDS ORDERED: DOCUSATE SODIUM 100MG CAPSULE PO PRN (16:45)
[2020-05-29] MEDS ORDERED: MAGNESIUM/ALUMINUM HYDROXIDE/SIMETHICONE 30ML UDC PO PRN (16:45)
[2020-05-29] MEDS ORDERED: GUAIFENESIN 200MG/10ML SUGAR FREE UDC PO PRN (16:45)
[2020-05-29] MEDS ORDERED: ONDANSETRON HCL 4MG/2ML INJ IV PRN (16:45)
[2020-05-29] MEDS ORDERED: ENOXAPARIN 30MG/0.3ML SYR SUBCUT SCH (17:00)
[2020-05-29] MEDS ORDERED: SODIUM CHLORIDE 0.9% 500 ML IV ONE (17:30)
[2020-05-29] MEDS: ACETAMINOPHEN 325MG TABLET PO PRN (20:47)
[2020-05-29] MEDS: AMLODIPINE 5MG TABLET PO SCH (21:00)
[2020-05-30 04:00] VITALS: BP 136/58
[2020-05-30 06:18] LABS: HEMATOCRIT. 35.4 % (36.0-48.0); HEMOGLOBIN. 11.9 g/dL (12.0-16.0); MEAN CORPUSCULAR HEMOGLOBIN 27.7 pg (28.0-32.0); MEAN CORPUSCULAR VOLUME 82.4 fL (81.0-99.0); MEAN PLATELET VOLUME 7.6 fl (7.4-10.4); PLATELET 346 x1000/uL (130-400); RED BLOOD CELL COUNT 4.29 mill/uL (4.2-5.4); RED CELL DISTRIBUTION WIDTH 16.9 % (11.6-14.6)
[2020-05-30 06:35] LABS: CHLORIDE 104 mEq/L (98-107)
[2020-05-30 06:46] LABS: T4 FREE 1.23 ng/dL (0.76-1.46)
[2020-05-30 06:57] LABS: TOTAL IRON BINDING CAPACITY 230 ug/dL (250-450)
[2020-05-30 06:58] LABS: VITAMIN B12 SERUM 865 pg/mL (211-911)
[2020-05-30 08:00] VITALS: BP 108/58
[2020-05-30] MEDS: AMLODIPINE 5MG TABLET PO SCH (09:00)
[2020-05-30] MEDS: NEBIVOLOL HCL 5 MG TABLET PO SCH (09:45)
[2020-05-30] MEDS: AMLODIPINE 10MG TABLET PO SCH (09:45)
[2020-05-30] MEDS ORDERED: LOSARTAN POTASSIUM 25 MG TABLET PO SCH (09:45)
[2020-05-30] MEDS: CLOPIDOGREL 75MG TABLET PO SCH (10:14)
[2020-05-30 12:00] VITALS: BP 113/55
[2020-05-30 12:16] LABS: CREATINE KINASE 238 IU/L (26-192)
[2020-05-30] MEDS: SODIUM CHLORIDE 0.45% 1,000 ML IV SCH ×2 (12:48→23:50)
[2020-05-30 16:00] VITALS: BP 118/56
[2020-05-30 16:39] LABS: PLATELET ESTIMATE NORMAL
[2020-05-30 20:00] VITALS: BP 105/50
[2020-05-30] MEDS ORDERED: ATORVASTATIN CALCIUM 40MG TABLET PO SCH (21:00)
[2020-05-30] MEDS: HYDROCODONE/ACETAMINOPHEN 5/325MG TABLET PO PRN (21:06)
[2020-05-30] MEDS: ACETAMINOPHEN 325MG TABLET PO PRN (23:36)
[2020-05-31] VITALS: BP 137/84
[2020-05-31] MEDS: HYDROCODONE/ACETAMINOPHEN 5/325MG TABLET PO PRN ×2 (01:13→05:56)
[2020-05-31 04:00] VITALS: BP 128/80
[2020-05-31 06:54] LABS: BASOPHILS % 0.7 % (0.0-2.0); EOSINOPHILS % 1.8 % (0.0-5.0); HEMATOCRIT. 32.2 % (36.0-48.0); HEMOGLOBIN. 10.7 g/dL (12.0-16.0); LYMPHOCYTES % 27.7 % (20.0-50.0); MEAN CORPUSCULAR HEMOGLOBIN 27.1 pg (28.0-32.0); MEAN CORPUSCULAR VOLUME 81.8 fL (81.0-99.0); MEAN PLATELET VOLUME 8.1 fl (7.4-10.4); MONOCYTES % 11.4 % (2.0-8.0); NEUTROPHILS % 58.4 % (40.0-76.0); PLATELET 330 x1000/uL (130-400); RED BLOOD CELL COUNT 3.94 mill/uL (4.2-5.4); RED CELL DISTRIBUTION WIDTH 17.1 % (11.6-14.6)
[2020-05-31 07:44] LABS: PHOSPHORUS 2.3 mg/dL (2.5-4.9)
[2020-05-31 08:00] VITALS: BP 116/59
[2020-05-31] MEDS: CLOPIDOGREL 75MG TABLET PO SCH (09:16)
[2020-05-31] MEDS: AMLODIPINE 10MG TABLET PO SCH (09:16)
[2020-05-31] MEDS: NEBIVOLOL HCL 5 MG TABLET PO SCH (09:16)
[2020-05-31] MEDS: SODIUM CHLORIDE 0.45% 1,000 ML IV SCH (12:58)
[2020-05-31 14:00] VITALS: BP 132/55
[2020-05-31 14:22] VITALS: BP 132/55
== END 2020-05-31 15:45 | disposition home health service (06) | DRG 70 ==
LOC: ER 12:26 → MICUSO 16:09 → 7WST 05-30 02:42 → 8WST 05-30 23:17
PROVIDERS: ADMIT Hospitalist; ATTEND Hospitalist
DX: G93.41 Metabolic encephalopathy (principal); N17.0 Acute kidney failure with tubular necrosis; I96 Gangrene, not elsewhere classified; E87.1 Hypo-osmolality and hyponatremia; R62.7 Adult failure to thrive; N18.9 Chronic kidney disease, unspecified; I25.10 Atherosclerotic heart disease of native coronary artery without angina pectoris; I12.9 Hypertensive chronic kidney disease with stage 1 through stage 4 chronic kidney disease, or unspecified chronic kidney disease; E86.0 Dehydration; E78.5 Hyperlipidemia, unspecified; M19.90 Unspecified osteoarthritis, unspecified site; R79.89 Other specified abnormal findings of blood chemistry; I36.1 Nonrheumatic tricuspid (valve) insufficiency; Z95.1 Presence of aortocoronary bypass graft; Z79.82 Long term (current) use of aspirin; Z79.899 Other long term (current) drug therapy; Z79.02 Long term (current) use of antithrombotics/antiplatelets; Z68.28 Body mass index [BMI] 28.0-28.9, adult; Z03.818 Encounter for observation for suspected exposure to other biological agents ruled out
CPT/HCPCS: 36415; 71045; 73130; 73630; 76770; 80048; 80053; 81003; 82550; 82607; 82962; 83540; 83550; 83605; 83735; 83880; 83935; 84100; 84145; 84439; 84443; 84481; 84484; 85025; 87635; 93005; 93970; 96365; 99285; J1650; J2543; J3370

== ENCOUNTER → 2020-07-14 | Outpatient (CLI) | payer MEDICARE, MEDICAID | END | disposition home or self-care (01) | LOC: RAD 11:09 | PROVIDERS: ATTEND Specialist | DX: Z01.810 Encounter for preprocedural cardiovascular examination (principal); R05 Cough | CPT/HCPCS: 71046 ==

== ENCOUNTER → 2020-09-18 | Outpatient (CLI) | payer MEDICARE, MEDICAID | END | disposition home or self-care (01) | LOC: LAB 11:22 | PROVIDERS: ATTEND Specialist | DX: Z01.812 Encounter for preprocedural laboratory examination (principal); R05 Cough; Z20.828 Contact with and (suspected) exposure to other viral communicable diseases | CPT/HCPCS: C9803; U0003 ==

== ENCOUNTER 2020-09-19 06:27 | Inpatient (IN) | payer MEDICARE, MEDICAID ==
[~2020-09-19] VITALS: Ht 165.1 cm; Wt 58.5 kg
[2020-09-19] MEDS ORDERED: LIDOCAINE HCL 1% 20ML VIAL (Pyxis) INJ ONE ×2 (07:45→08:30)
[2020-09-19] MEDS ORDERED: IODIXANOL 320MG/ML 100 ML BOTTLE IV ONE (07:45)
[2020-09-19] MEDS ORDERED: ASPIRIN/SOD BICARB/CITRIC ACID 324MG TAB EFF ONE (07:53)
[2020-09-19] MEDS ORDERED: HEPARIN SODIUM 1,000 UNIT/1ML VIAL IV ONE (08:00)
[2020-09-19] MEDS ORDERED: MIDAZOLAM HCL 2 MG/2 ML VIAL ONE ×2 (08:11→09:04)
[2020-09-19] MEDS ORDERED: FENTANYL CITRATE/PF 50MCG/ML 2ML VIAL ONE ×2 (08:11→09:04)
[2020-09-19] MEDS ORDERED: HYDRALAZINE 20MG/ML VIAL ONE (09:04)
[2020-09-19] MEDS ORDERED: ACETAMINOPHEN 325MG TABLET PO PRN (09:15)
[2020-09-19] MEDS ORDERED: ONDANSETRON HCL 4MG/2ML INJ IV PRN (09:15)
[2020-09-19] MEDS ORDERED: ATROPINE SULFATE 1MG/10ML SYR IV PRN (09:15)
[2020-09-19] MEDS ORDERED: LABETALOL HCL 5MG/ML VIAL 20ML IV ONE (09:36)
[2020-09-19] MEDS ORDERED: AMLODIPINE 5MG TABLET PO SCH (10:00)
[2020-09-19] MEDS ORDERED: NEBIVOLOL HCL 5 MG TABLET PO SCH (10:00)
[2020-09-19] MEDS: MORPHINE SULFATE 2 MG/ML CPJ (NOT FOR IM USE) IV PRN ×3 (10:55→20:47)
[2020-09-19] MEDS: HYDROCODONE/APAP 7.5/325MG 1 TAB TABLET PO PRN (18:58)
[2020-09-19] MEDS ORDERED: MORPHINE SULFATE 2 MG/ML CPJ (NOT FOR IM USE) IV ONE (19:36)
[2020-09-19] MEDS: CILOSTAZOL 50 MG TABLET PO SCH (21:00)
[2020-09-19] MEDS: HYDRALAZINE 20MG/ML VIAL IV PRN (21:09)
[2020-09-19 22:00] VITALS: BP 165/67
[2020-09-19 22:30] VITALS: BP 165/67
[2020-09-19] MEDS ORDERED: AMLODIPINE 5MG TABLET PO NR (23:30)
[2020-09-20 01:00] VITALS: BP 137/52
[2020-09-20] MEDS: HYDROCODONE/APAP 7.5/325MG 1 TAB TABLET PO PRN (02:22)
[2020-09-20 04:00] VITALS: BP 173/80
[2020-09-20] MEDS: HYDRALAZINE 20MG/ML VIAL IV PRN (05:45)
[2020-09-20] MEDS: MORPHINE SULFATE 2 MG/ML CPJ (NOT FOR IM USE) IV PRN ×2 (06:32→09:49)
[2020-09-20 07:03] LABS: BASOPHILS % 0.5 % (0.0-2.0); HEMATOCRIT. 31.9 % (36.0-48.0); HEMOGLOBIN. 10.7 g/dL (12.0-16.0); LYMPHOCYTES % 25.4 % (20.0-50.0); MEAN CORPUSCULAR HEMOGLOBIN 26.6 pg (28.0-32.0); MEAN CORPUSCULAR VOLUME 79.5 fL (81.0-99.0); MEAN PLATELET VOLUME 8.1 fl (7.4-10.4); MONOCYTES % 11.5 % (2.0-8.0); NEUTROPHILS % 61.6 % (40.0-76.0); PLATELET 339 x1000/uL (130-400); RED BLOOD CELL COUNT 4.01 mill/uL (4.2-5.4); RED CELL DISTRIBUTION WIDTH 16.6 % (11.6-14.6)
[2020-09-20 08:00] VITALS: BP 129/54
[2020-09-20] MEDS ORDERED: NEBIVOLOL HCL 5 MG TABLET PO SCH (09:00)
[2020-09-20] MEDS ORDERED: AMLODIPINE 5MG TABLET PO SCH (09:00)
[2020-09-20] MEDS ORDERED: ASPIRIN 81MG TABLET PO SCH (09:00)
[2020-09-20] MEDS: CILOSTAZOL 50 MG TABLET PO SCH (09:25)
[2020-09-20 12:00] VITALS: BP 124/50
[2020-09-20 16:00] VITALS: BP 164/67
[2020-09-20 17:22] VITALS: BP 164/67
== END 2020-09-20 18:32 | disposition home or self-care (01) | DRG 301 ==
LOC: ANGIO 06:27 → 6WST 22:50
PROVIDERS: ADMIT Specialist; ATTEND Specialist
PROC: B41G1ZZ Fluoroscopy of Left Lower Extremity Arteries using Low Osmolar Contrast (ICD-10-PCS; principal; 2020-09-19)
DX: I73.9 Peripheral vascular disease, unspecified (principal); I70.92 Chronic total occlusion of artery of the extremities; D64.9 Anemia, unspecified; E78.5 Hyperlipidemia, unspecified; I25.10 Atherosclerotic heart disease of native coronary artery without angina pectoris; I25.82 Chronic total occlusion of coronary artery; I12.9 Hypertensive chronic kidney disease with stage 1 through stage 4 chronic kidney disease, or unspecified chronic kidney disease; N18.9 Chronic kidney disease, unspecified; I25.2 Old myocardial infarction; Z79.02 Long term (current) use of antithrombotics/antiplatelets; Z79.82 Long term (current) use of aspirin; Z79.899 Other long term (current) drug therapy; Z95.1 Presence of aortocoronary bypass graft
CPT/HCPCS: 36246; 36415; 75710; 80048; 84484; 85025; 93005; C1725; C1760; C1769; C9803; J0360; J1644; J2250; J2270; J3010; J3490; J7040; Q9967; U0003

== ENCOUNTER 2022-04-21 12:36 | Emergency (ER) | payer MEDICARE, MEDICAID ==
[~2022-04-21] VITALS: Ht 167.6 cm; Wt 59.0 kg
[~2022-04-21 12:36] MED LIST changes: -ASPI-1158 PO; +ASPI-1406 PO; +CLOP-31 PO; -CLOP75TA4 PO
[2022-04-21 12:50] VITALS: BP 128/52
== END 2022-04-21 14:00 | disposition home or self-care (01) ==
LOC: ER 12:36
DX: S09.8XXA Other specified injuries of head, initial encounter (principal); W18.39XA Other fall on same level, initial encounter; Y93.89 Activity, other specified; Y92.89 Other specified places as the place of occurrence of the external cause; Y99.8 Other external cause status; F03.90 Unspecified dementia, unspecified severity, without behavioral disturbance, psychotic disturbance, mood disturbance, and anxiety; I10 Essential (primary) hypertension; E78.5 Hyperlipidemia, unspecified; E78.00 Pure hypercholesterolemia, unspecified; I25.2 Old myocardial infarction; Z79.899 Other long term (current) drug therapy
CPT/HCPCS: 99284

== ENCOUNTER 2022-05-21 13:09 | Emergency (ER) | payer MEDICARE, MEDICAID ==
[~2022-05-21] VITALS: Ht 172.7 cm; Wt 55.0 kg
[2022-05-21 13:12] VITALS: BP 151/91
== END 2022-05-21 17:53 | disposition left against medical advice (07) ==
LOC: ER 13:09
DX: Z53.21 Procedure and treatment not carried out due to patient leaving prior to being seen by health care provider (principal); I49.9 Cardiac arrhythmia, unspecified
CPT/HCPCS: 93005

== ENCOUNTER 2023-01-11 12:41 | Emergency (ER) | payer MEDICARE, MEDICAID ==
[~2023-01-11] VITALS: Ht 172.7 cm; Wt 66.0 kg
[~2023-01-11 12:41] MED LIST changes: -CILO100T PO; +CILO100T3 PO
[2023-01-11 12:46] VITALS: BP 177/71
== END 2023-01-11 13:59 | disposition left against medical advice (07) ==
LOC: ER 13:47
DX: Z53.21 Procedure and treatment not carried out due to patient leaving prior to being seen by health care provider (principal)